=== PATIENT | female | born 1955 | race Hispanic/Latino ===

== ENCOUNTER → 2019-01-28 | Outpatient (CLI) | payer OTHER ==
--- NOTE | 2019-02-11 09:01 | Diagnostic Imaging Report ---
#[id number] - MGSCRBIL #BILATERAL DIGITAL SCREENING MAMMOGRAM WITH CAD: 01/28/2019 CLINICAL: Routine screening. Comparison is made to exams dated: 03/06/2018 mammogram and 02/03/2017 mammogram - [facility]. Current study contains 4 films. The tissue of both breasts is predominantly fatty. Current study was also evaluated with a Computer Aided Detection (CAD) system. Benign appearing calcifications are noted bilaterally. There is a benign intramammary node in the left breast. No significant masses, calcifications, or other findings are seen in either breast. IMPRESSION: BENIGN There is no mammographic evidence of malignancy. A 1 year screening mammogram is recommended. The patient will be notified by letter of the results. JANES ESTEVEZ M.D. ct/penrad:02/08/2019 08:27:36 Residential Youth Counselor: Teresa MARTIN)(Asia), [facility] letter sent: Normal Exam Mammogram BI-RADS: 2 Benign
== END ==
LOC: MAMMO 14:01
PROVIDERS: ATTEND Internal Medicine
DX: Z12.31 Encounter for screening mammogram for malignant neoplasm of breast (principal)
CPT/HCPCS: 77067

== ENCOUNTER → 2019-07-03 | Outpatient (CLI) | payer OTHER ==
--- NOTE | 2019-07-03 15:45 | Diagnostic Imaging Report ---
EXAM: CHEST 2 VIEWS DATE: 07/03/2019 2:43 PM INDICATION: Shortness of breath COMPARISON: None FINDINGS: The trachea is midline. The lungs are symmetrically expanded without evidence for large focal consolidation, pneumothorax, or significant pleural effusion. The cardiomediastinal silhouette and pulmonary vasculature are within normal limits. No acute osseous abnormality is identified. The surrounding soft tissues are unremarkable. IMPRESSION: No acute cardiopulmonary process identified. Signed by: Dr. Sarwat Arana MD on 07/03/2019 3:42 PM
--- NOTE | 2019-07-03 15:50 | Diagnostic Imaging Report ---
EXAM: THORACIC SPINE 2VW, SP LUMBAR, COMPLETE MIN 4VW DATE: 07/03/2019 2:43 PM INDICATION: Back pain COMPARISON: None FINDINGS: Thoracic spine: There is no evidence for acute fracture or dislocation. No focal lytic or blastic abnormality is identified. Vertebral body heights are maintained. There are mild degenerative changes of the thoracic spine. Lumbar spine: There are 5 nonrib-bearing lumbar type vertebral bodies. There is no evidence for acute fracture or dislocation. Lumbar spinal alignment is within normal limits. Intervertebral disc space heights and vertebral body heights are maintained. There are mild degenerative changes present of the lumbar spine, most prominent at L5-S1. The surrounding soft tissues are unremarkable. The visualized intra-abdominal contents demonstrate no significant abnormalities. IMPRESSION: No acute radiographic abnormality identified within the thoracolumbar spine. Signed by: Dr. Sarwat Arana MD on 07/03/2019 3:47 PM
--- NOTE | 2019-07-03 15:51 | Diagnostic Imaging Report ---
EXAM: SACRUM X-RAY DATE: 07/03/2019 2:43 PM INDICATION: Back pain COMPARISON: None FINDINGS: There is no evidence for acute fracture or dislocation. Bony mineralization is within normal limits. No focal lytic or blastic abnormality is identified. The bilateral SI joints are unremarkable. The visualized intrapelvic contents are unremarkable. IMPRESSION: No acute radiographic abnormality identified within the sacrum. Signed by: Dr. Sarwat Arana MD on 07/03/2019 3:48 PM
== END ==
LOC: RAD 14:17
PROVIDERS: ATTEND Internal Medicine
DX: R06.02 Shortness of breath (principal); R91.1 Solitary pulmonary nodule; M43.06 Spondylolysis, lumbar region
CPT/HCPCS: 71046; 72070; 72110; 72220

== ENCOUNTER 2019-08-21 22:25 | Observation (INO) | payer OTHER ==
[~2019-08-21] VITALS: Ht 157.5 cm; Wt 84.8 kg
--- OUTSIDE RECORDS SUMMARY | 2019-08-21 22:28 | XMS REPORT ---
[facility] Address Unknown Phone Unavailable Care Team Providers Care Spout Tender Name Role Phone Asia DOOLEY JEFFERSON Unavailable Unavailable Problems This patient has no known problems. Allergies, Adverse Reactions, Alerts This patient has no known allergies or adverse reactions. Medications This patient has no known medications. Encounters Start Date/Time End Date/Time Encounter Type Admission Type Attending [facility] [place] Facility Care Department Encounter ID 2018-11-01 00:00:00 2018-11-01 00:00:00 Outpatient [facility] [id number] 2018-10-08 00:00:00 2018-10-08 00:00:00 Outpatient [facility] [id number] 2018-07-13 09:06:32 2018-07-13 09:06:32 Outpatient [facility] [id number] 2018-07-03 10:55:10 2018-07-03 10:55:10 Outpatient [facility] [id number] 2018-06-05 14:02:54 2018-06-05 14:02:54 Outpatient [facility] [id number] 2018-06-05 00:00:00 2018-06-05 00:00:00 Outpatient [facility] [id number] 2018-05-31 13:17:26 2018-05-31 13:17:26 Outpatient [facility] [id number] 2018-05-31 13:05:35 2018-05-31 13:05:35 Outpatient [facility] [id number] 2018-05-30 00:00:00 2018-05-30 00:00:00 Outpatient [facility] [id number] 2018-05-29 00:00:00 2018-05-29 00:00:00 Outpatient [facility] [id number] 2018-05-29 00:00:00 2018-05-29 00:00:00 Outpatient [facility] [id number] 2018-05-23 00:00:00 2018-05-23 00:00:00 Outpatient [facility] [id number] 2018-05-18 08:27:30 2018-05-18 08:27:30 Outpatient [facility] [id number] 2018-05-10 00:00:00 2018-05-10 00:00:00 Outpatient [facility] [id number] 2018-05-01 09:52:55 2018-05-01 09:52:55 Outpatient [facility] [id number] 2018-04-25 14:16:51 2018-04-25 14:16:51 Outpatient [facility] [id number] 2018-04-23 00:00:00 2018-04-23 00:00:00 Outpatient [facility] [id number] 2018-04-17 09:50:15 2018-04-17 09:50:15 Outpatient [facility] [id number] 2018-04-17 07:58:42 2018-04-17 07:58:42 Outpatient [facility] [id number] 2018-04-09 09:41:18 2018-04-09 09:41:18 Outpatient [facility] [id number] 2018-04-09 09:41:16 2018-04-09 09:41:16 Outpatient [facility] [id number] 2018-04-06 09:46:30 2018-04-06 09:46:30 Outpatient [facility] [id number] 2018-03-09 12:46:42 2018-03-09 12:46:42 Emergency [facility] [id number] 2018-03-09 09:26:29 2018-03-09 09:26:29 Outpatient [facility] [id number] 2018-03-09 07:52:56 2018-03-09 07:52:56 Outpatient [facility] [id number] 2018-03-06 08:33:58 2018-03-06 08:33:58 Outpatient [facility] [id number] 2018-03-06 08:21:20 2018-03-06 08:21:20 Outpatient [facility] [id number] 2018-03-02 00:00:00 2018-03-02 00:00:00 Outpatient [facility] [id number] 2018-02-28 14:07:49 2018-02-28 14:07:49 Outpatient [facility] [id number] 2018-02-26 14:11:15 2018-02-26 14:11:15 Outpatient [facility] [id number] 2018-02-22 14:22:08 2018-02-22 14:22:08 Outpatient [facility] [id number] 2018-02-19 09:34:58 2018-02-19 09:34:58 Outpatient [facility] [id number] 2018-02-02 13:48:11 2018-02-02 13:48:11 Emergency [facility] [id number] 2018-02-02 12:40:27 2018-02-02 12:40:27 Emergency [facility] [id number] 2017-11-17 09:54:42 2017-11-17 09:54:42 Outpatient [facility] [id number] 2017-11-16 15:52:14 2017-11-16 15:52:14 Outpatient [facility] [id number] 2017-10-04 00:00:00 2017-10-04 00:00:00 Outpatient [facility] [id number] 2017-03-31 07:55:24 2017-03-31 07:55:24 Outpatient [facility] [id number] Results Test Description Test Time Test Comments Text Results Atomic Results Result Comments SACRUM X-RAY 2019-07-03 15:47:00 [place] [id number] Patient Name: CRISTOPHER BOOKER MR #: [id number] : 1955 Age/Sex: 63/F Req #: [id number] Adm Physician: Ordered by: JEFFERSON DOOLEY MD Report #: [id number] Location: [facility] Room/Bed: Procedure: [id number] DX/SACRUM X-RAY Exam Date: Exam Time: REPORT STATUS: Signed EXAM: SACRUM X-RAY DATE: 07/03/2019 2:43 PM INDICATION: Back pain COMPARISON: None FINDINGS: There is no evidence for acute fracture or dislocation. Bony mineralization is within normal limits. No focal lytic or blastic abnormality is identified. The bilateral SI joints are unremarkable. The visualized intrapelvic contents are unremarkable. IMPRESSION: No acute radiographic abnormality identified within the sacrum. Signed by: Dr. Sarwat Arana MD on 07/03/2019 3:48 PM Dictated By: SARWAT ARANA MD 47 Transcribed By: LUIZA on 07/03/191547 COPY TO: JEFFERSON DOOLEY MD THORACIC SPINE 2VW 2019-07-03 15:43:00 [place] [id number] Patient Name: CRISTOPHER BOOKER MR #: [id number] : 1955 Age/Sex: 63/F Req #: [id number] Adm Physician: Ordered by: JEFFERSON DOOLEY MD Report #: [id number] Location: [facility] Room/Bed: Procedure: [id number] DX/THORACIC SPINE 2VW Exam Date: Exam Time: REPORT STATUS: Signed EXAM: THORACIC SPINE 2VW, SP LUMBAR, COMPLETE MIN 4VW DATE: 06/23 2:43 PM INDICATION: Back pain COMPARISON: None FINDINGS: Thoracic spine: There is no evidence for acute fracture or dislocation. No focal lytic or blastic abnormality is identified. Vertebral body heights are maintained. There are mild degenerative changes of the thoracic spine. Lumbar spine: There are 5 nonrib-bearing lumbar type vertebral bodies. There is no evidence for acute fracture or dislocation. Lumbar spinal alignment is within normal limits. Intervertebral disc space heights and vertebral body heights are maintained. There are mild degenerative changes present of the lumbar spine, most prominent at L5-S1. The surrounding soft tissues are unremarkable. The visualized intra-abdominal contents demonstrate no significant abnormalities. IMPRESSION: No acute radiographic abnormality identified within the thoracolumbar spine. Signed by: Dr. Sarwat Arana MD on 07/03/2019 3:47 PM Dictated By: SARWAT ARANA MD 46 Transcribed By: LUIZA on 07/03/191546 COPY TO: JEFFERSON DOOLEY MD SP LUMBAR, COMPLETE MIN 4VW 2019-07-03 15:43:00 [place] [address] Patient Name: CRISTOPHER BOOKER MR #: [id number] : 1955 Age/Sex: 63/F Req #: [id number] Adm Physician: Ordered by: JEFFERSON DOOLEY MD Report #: [id number] Location: [facility] Room/Bed: Procedure: [id number] DX/SP LUMBAR, COMPLETE MIN 4VW Exam Date: Exam Time: REPORT STATUS: Signed EXAM: THORACIC SPINE 2VW, SP LUMBAR, COMPLETE MIN 4VW D ATE: 07/03/2019 2:43 PM INDICATION: Back pain COMPARISON: None FINDINGS: Thoracic spine: There is no evidence for acute fracture or dislocation. No focal lytic or blastic abnormality is identified. Vertebral body heights are maintained. There are mild degenerative changes of the thoracic spine. Lumbar spine: There are 5 nonrib-bearing lumbar type vertebral bodies. There is no evidence for acute fracture or dislocation. Lumbar spinal alignment is within normal limits. Intervertebral disc space heights and vertebral body heights are maintained. There are mild degenerative changes present of the lumbar spine, most prominent at L5-S1. The surrounding soft tissues are unremarkable. The visualized intra-abdominal contents demonstrate no significant abnormalities. IMPRESSION: No acute radiographic abnormality identified within the thoracolumbar spine. Signed by: Dr. Sarwat Arana MD on 07/03/2019 3:47 PM Dictated By: SARWAT ARANA MD 46 Transcribed By: LUIZA on 07/03/191546 COPY TO: JEFFERSON DOOLEY MD CHEST 2 VIEWS 2019-07-03 15:41:00 [place] [address] Patient Name: CRISTOPHER BOOKER MR #: [id number] : 1955 Age/Sex: 63/F Req #: [id number] Adm Physician: Ordered by: JEFFERSON DOOLEY MD Report #: [id number] Location: [facility] Room/Bed: Procedure: [id number] DX/CHEST 2 VIEWS Exam Date: Exam Time: REPORT STATUS: Signed EXAM: CHEST 2 VIEWS DATE: 07/03/2019 2:43 PM INDICATION: Shortness of breath COMPARISON: None FINDINGS: The trachea is midline. The lungs are symmetrically expanded without evidence for large focal consolidation, pneumothorax, or significant pleural effusion. The cardiomediastinal silhouette and pulmonary vasculature are within normal limits. No acute osseous abnormality is identified. The surrounding soft tissues are unremarkable. IMPRESSION: No acute cardiopulmonary process identified. Signed by: Dr. Sarwat Arana MD on 07/03/2019 3:42 PM Dictated By: SARWAT ARANA MD 41 Transcribed By: LUIZA on 07/03/191541 COPY TO: JEFFERSON DOOLEY MD MAMMOGRAPHY DIGITAL SCR BILAT 2019-01-28 14:44:00 [place] [address] Patient Name: CRISTOPHER BOOKER MR #: [id number] : 1955 Age/Sex: 63/F Req #: [id number] Adm Physician: Ordered by: JEFFERSON DOOLEY MD Report #: [id number] Location: MAMMO Room/Bed: Procedure: [id number] MG/MAMMOGRAPHY DIGITAL SCR BILAT Exam Date: Exam Time: REPORT STATUS: Signed #[id number] - MGSCRBIL #BILATERAL DIGITAL SCREENING M AMMOGRAM WITH CAD: 01/28/2019 CLINICAL: Routine screening. Comparison is made to exams dated: 03/06/2018 mammogram and 02/03/2017 mammogram - [facility]. Current study contains 4 films. The tissue of both breasts is predominantly fatty. Current study was also evaluated with a Computer Aided Detection (CAD) system. Benign appearing calcifications are noted bilaterally. There is a benign intramammary node in the left breast. No significant masses, calcifications, or other findings are seen in either breast. IMPRESSION: BENIGN There is no mammographic evidence of malignancy. A 1 year screening mammogram is recommended. The patient will be notified by letter of the results. JANES olivier/payam:02/08/2019 08:27:36 Sulfuric Acid Plant Operator: Teresa MARTIN)(M), [facility] letter sent: Normal Exam Mammogram BI-RADS: 2 Benign Dictated By: JANES ESTEVEZ MD 6 Transcribed By: PAYAM on 02/08/19826 COPY TO: JEFFERSON DOOLEY MD
[2019-08-21] MEDS ORDERED: NITROGLYCERIN 2% OINT 1 GM PKT TOP ONE (23:00)
[2019-08-21] MEDS ORDERED: ASPIRIN 81 MG CHEW TAB PO ONE ×2 (23:00)
[2019-08-21] MEDS ORDERED: FAMOTIDINE 20 MG/2 ML VIAL IV ONE (23:00)
[2019-08-21] MEDS ORDERED: ONDANSETRON HCL INJ 2MG/ML 2ML 2 MG/ML VIAL IV ONE (23:00)
[2019-08-21 23:16] LABS: BASOPHILS % 0.4 % (0.0-1.0); EOSINOPHILS # (AUTO) 0.1 (0.0-0.4); HEMATOCRIT 38.4 % (34.2-44.1); HEMOGLOBIN 12.6 g/dL (12.0-16.0); LYMPHOCYTES # (AUTO) 1.7 (1.0-3.2); LYMPHOCYTES % 20.2 % (18.0-39.1); MEAN CORPUSCULAR HGB CONC 32.8 g/dL (31-35); MEAN CORPUSCULAR VOLUME 85.3 fL (81-99); MONOCYTES # (AUTO) 0.7 (0.2-0.8); MONOCYTES % 8.8 % (4.4-11.3); NEUTROPHILS # (AUTO) 5.8 (2.1-6.9); NEUTROPHILS % 69.4 % (38.7-80.0); PLATELET COUNT 205 x10e3/uL (140-360); RED CELL DISTRIBUTION WIDTH 12.6 % (11.7-14.4)
[2019-08-21 23:29] LABS: ALANINE AMINOTRANSFERASE 20 IU/L (0-55); ALBUMIN 4.1 g/dL (3.5-5.0); ALBUMIN/GLOBULIN RATIO 1.4 (0.8-2.0); ALKALINE PHOSPHATASE 70 IU/L (40-150); ANION GAP 15.7 mmol/L (8-16); BLOOD UREA NITROGEN 13 mg/dL (7-26); BUN/CREATININE RATIO 16 (6-25); CALCIUM 9.8 mg/dL (8.4-10.2); CARBON DIOXIDE 24 mmol/L (22-29); CHLORIDE 105 mmol/L (98-107); CREATINE KINASE 61 IU/L (29-168); CREATININE, SERUM 0.79 mg/dL (0.57-1.11); EST GLOMERULAR FILTRATION RATE > 60 ML/MIN (60-); GLUCOSE 116 mg/dL (74-118); POTASSIUM 3.7 mmol/L (3.5-5.1); SODIUM 141 mmol/L (136-145)
[2019-08-21 23:49] LABS: AMYLASE 73 U/L (25-125); LIPASE 24 U/L (8-78)
--- NOTE | 2019-08-21 23:51 | Diagnostic Imaging Report ---
EXAMINATION: CHEST SINGLE (PORTABLE) COMPARISON: Chest x-ray 07/03/2019 INDICATION: Shortness of breath, upper back pain ^Chest pain, look for CHF, enlarge Mediastinum ^[id number] ^2324 DISCUSSION: Frontal view of the chest obtained at 2329 hours. HEART AND MEDIASTINUM: The heart is top normal in size and stable. LINES: None LUNGS: Diffuse hyperinflation suggestive of small airways disease. No edema or consolidation. PLEURA: No pleural effusion or pneumothorax. Stable eventration of the right diaphragm. BONES AND SOFT TISSUES: Degenerative changes of the spine. No focal osseous lesions. The soft tissues are normal. IMPRESSION: Stable mild cardiomegaly. Diffuse hyperinflation suggestive of small airways disease. No acute cardiopulmonary process. Signed by: Dr. Matt Lay MD on 08/21/2019 11:48 PM
[2019-08-22] VITALS (10 sets, daily range): BP systolic 98–151; BP diastolic 53–68
[2019-08-22 00:04] LABS: CLARITY,URINE SL CLOUDY (CLEAR); COLOR,URINE YELLOW (YELLOW)
[2019-08-22 00:05] LABS: BACTERIA,URINE FEW /HPF; BILIRUBIN,URINE NEGATIVE (NEGATIVE); EPITHELIAL CELLS,URINE FEW /LPF; KETONES,URINE 1+ (NEGATIVE); LEUKOCYTE ESTERASE ,URINE NEGATIVE (NEGATIVE); NITRITE,URINE NEGATIVE (NEGATIVE); PROTEIN,URINE DIPSTICK NEGATIVE (NEGATIVE); RBC,URINE 0-5 /HPF (0-5); URINE UROBILINOGEN 0.2 mg/dL (0.2 - 1); WBC,URINE (MAN) 0-5 /HPF (0-5)
[2019-08-22] MEDS ORDERED: LACTATED RINGER'S 1,000 ML IV SCH (00:12)
[2019-08-22] MEDS ORDERED: DIPHENHYDRAMINE HCL INJ 50 MG/ML VIAL IV PRN (00:15)
[2019-08-22] MEDS ORDERED: ENALAPRILAT IV INJ 1.25 MG/ML VIAL IV PRN (00:15)
[2019-08-22] MEDS ORDERED: ONDANSETRON HCL INJ 2MG/ML 2ML 2 MG/ML VIAL IV PRN (00:15)
[2019-08-22] MEDS ORDERED: ACETAMINOPHEN 325 MG TAB PO PRN (00:15)
[2019-08-22] MEDS ORDERED: METOPROLOL TARTRATE 25 MG TAB PO SCH (00:15)
[2019-08-22] MEDS ORDERED: SODIUM CHLORIDE FLUSH 10 ML SYR INJ PRN (00:15)
[2019-08-22] MEDS ORDERED: ZOLPIDEM TARTRATE 5 MG TAB PO PRN (00:15)
[2019-08-22] MEDS ORDERED: MORPHINE SULFATE 2 MG/ML SYR 1ML IV PRN (00:15)
[2019-08-22] MEDS ORDERED: MORPHINE SULFATE INJ 4 MG/ML INJ 1ML IV PRN (00:15)
[2019-08-22] MEDS ORDERED: ENOXAPARIN INJ 80 MG/0.8 ML SYR SC ONE (00:15)
[2019-08-22] MEDS ORDERED: TIZANIDINE HCL2 MG PO (01:32)
[2019-08-22] MEDS ORDERED: SIMVASTATIN20 MG PO (01:32)
[2019-08-22] MEDS ORDERED: ASPIR 8181 MG PO (01:32)
[2019-08-22] MEDS ORDERED: OMEPRAZOLE40 MG PO (01:32)
[2019-08-22] MEDS ORDERED: SUCRALFATE1 GM PO (01:32)
[2019-08-22] MEDS ORDERED: LOSARTAN POTASS50 MG PO (01:32)
[2019-08-22] MEDS ORDERED: ULTRAM 50MG50 MG PO (01:32)
--- NOTE | 2019-08-22 02:00 | NUR ---
patient arrived to the floor via wheelchair, escorted by [employer] INSTALLER, and spouse, patient AOX4, no respiratory distress noted, denies chest pain at this time VSS, telemetry in place, telemetry reporting NS with BBB, skin warm dry intact, ambulatory gait steady, oriented to staff, room and policies and procedures, all questions answered, call light placed within reach
--- NOTE | 2019-08-22 03:00 | NUR ---
hourly rounding completed, patient offered assistance for toileting, spouse at bedside sleeping, denies chest pain, telemetry box checked lead in place and active, skin warm dry, call light within reach, personal belongings within reach
[2019-08-22] MEDS ORDERED: NITROGLYCERIN 2% OINT 1 GM PKT TOP SCH (06:00)
--- NOTE | 2019-08-22 07:00 | NUR ---
PATIENT IS IN STABLE CONDITION WITH NO S/S OF RESPIRATORY DISTRESS- NO PAIN VOICED. IV FLUIDS INFUSING.TELEMETRY APPLIED. PRESENT IN ROOM. CALL LIGHT IS WITHIN REACH, PATIENT INSTRUCTED TO CALL FOR ASSISTANCE NEEDED.
[2019-08-22] MEDS: METOPROLOL TARTRATE 25 MG TAB PO SCH ×2 (09:00→20:25)
[2019-08-22] MEDS: FAMOTIDINE 20 MG/2 ML VIAL IV SCH ×2 (09:08→16:15)
[2019-08-22] MEDS ORDERED: TRAMADOL HCL 50 MG TAB PO PRN (10:15)
[2019-08-22] MEDS: LOSARTAN POTASSIUM 25 MG TAB PO SCH (11:00)
[2019-08-22] MEDS ORDERED: REGADENOSON 0.4 MG/5 ML SYR IV ONE (11:18)
--- NOTE | 2019-08-22 12:48 | NUR ---
PATIENT OFF THE UNIT TO NUCLEAR [facility] FOR STRESS TEST. TELE APPLIED. PATIENT IS IN STABLE CONDITION WITH NO S/S OF RESPIRATORY DISTRESS.
[2019-08-22 16:25] LABS: CREATINE KINASE 62 IU/L (29-168)
--- NOTE | 2019-08-22 17:09 | Consultation ---
DATE OF CONSULTATION: Cardiology Consult HISTORY OF PRESENT ILLNESS: Simran Gonzalez is a 63-year-old female with primary history of hypertension, hyperlipidemia, GERD, admitted complaining of intermittent substernal chest pain accompanied with dyspnea on exertion that started about a month ago. Few hours prior to admission, the patient reports of having shortness of breath walking from the parking lot to the hospital for her sleep study. She also reports and complains of a lot of burping episodes and anxiety in the past 24 hours. The patient denies any nausea, dizziness, or palpitations. Also denies fever and chills or contact with sick family members. PAST MEDICAL HISTORY: Hypertension, hyperlipidemia, GERD, and osteoarthritis. PAST SURGICAL HISTORY: None. FAMILY HISTORY: Parents are . Mom had of pulmonary causes and dad of CVA. PHYSICAL EXAMINATION: VITAL SIGNS: Temperature is 96.9, pulse is 84, blood pressure is 98/53, respirations 20, SpO2 is 95 on room air. GENERAL: The patient is well developed, well nourished, in no acute respiratory distress. SKIN: Normal in appearance, texture, and temperature, warm and dry. HEENT: The patient's cranium is normocephalic and atraumatic. Pupils are equally round and reactive to light and accommodation. Sclerae nonicteric. Ears are normal. Throat is clear. No thyromegaly. NECK: Supple. Full range of motion. No JVP. RESPIRATORY: Normal respiratory effort. Lungs are clear to auscultation bilaterally. No wheezing or rhonchi or rales. CARDIOVASCULAR: S1 and S2 audible. Regular rate and rhythm. ABDOMEN: No significant murmurs heard. GASTROINTESTINAL: Soft, obese, nontender, nondistended. Bowel sounds are present. EXTREMITIES: No cyanosis, no clubbing, no edema. NEUROVASCULAR: Motor is intact. Pulses are palpable 2+ throughout. IMPRESSION AND PLAN: Simran Gonzalez is a 63-year-old with atypical chest pain. EKG shows normal sinus rhythm with left bundle branch block, unchanged from previous EKG. IMPRESSION: Atypical chest pain. PLAN: 1. We will arrange for echocardiogram. 2. We will do Lexiscan nuclear stress test on her. 3. Monitor on telemetry. 4. Further cardiac workup depending on clinical course. Thank you for this consultation. We will continue to follow. Dictated by Sabi Gray, CAN DOFFER MD CIARA Chavez /[id number]
[2019-08-22] MEDS: SUCRALFATE 1 GM TAB PO SCH (17:14)
[2019-08-22] MEDS ORDERED: LACTATED RINGER'S 1,000 ML IV ONE (17:30)
--- NOTE | 2019-08-22 17:34 | History and Physical ---
HISTORY OF PRESENT ILLNESS: She is a 63-year-old female patient, presented to the emergency room with complaints of chest pain and interscapular pain. The patient was complaining of pain radiating to epigastric area and left shoulder and chest. The patient was also having a lot of burping. The patient was seen in the emergency room. The patient had previous coronary artery disease. The patient was admitted. REVIEW OF SYSTEMS: Back pain, epigastric pain, and chest pain. PAST MEDICAL HISTORY: Hypertension, coronary artery disease, and sleep apnea. PAST SURGICAL HISTORY: Heart cath. ALLERGIES: NO KNOWN DRUG ALLERGIES. SOCIAL HISTORY: The patient denies smoking. Denies using alcohol. FAMILY HISTORY: Hypertension. MEDICATIONS: See from the list. PHYSICAL EXAMINATION: GENERAL: She is a middle-aged female patient, not in any distress. VITAL SIGNS: Temperature 98, pulse is 88, blood pressure 120/70. HEENT: Normocephalic and atraumatic. NECK: No JVD. No lymphadenopathy. LUNGS: Bilateral equal air entry. No rales. No rhonchi. HEART: S1, S2 regular. No murmur. No gallop. ABDOMEN: Soft. Bowel sounds are present. NEUROLOGIC: No focal neurological deficit. LABORATORY EXAMINATION: EKG shows left bundle-branch block and left axis deviation. Chest x-ray was normal. Cardiac enzymes and chemistry were normal. ADMITTING IMPRESSION/DIAGNOSES: Chest pain, angina pectoris, history of coronary artery disease, history of gastroesophageal reflux disease, hyperlipidemia, and hypertension. PLAN: The patient will be admitted with above diagnoses. The patient is to have a cardiology consultation, Dr. Leigh. The patient will get a nuclear stress test and the further treatment as per the stress test report. We will monitor the patient in the telemetry unit and do serial EKG and cardiac enzymes to rule out any ischemic event. MD AUDRA Saavedra/PHYLICIA /[id number]
--- NOTE | 2019-08-22 19:01 | NUR ---
PATIENT IS IN STABLE CONDITION WITH NO S/S OF RESPIRATORY DISTRESS. NO C/O CHEST PAIN. IV FLUIDS INFUSING. PRESENT IN THE ROOM. CALL LIGHT IS WITHIN REACH, PATIENT INSTRUCTED TO CALL FOR ASSISTANCE NEEDED. BEDSIDE SHIFT REPORT GIVEN TO ONCOMING NURSE.
--- NOTE | 2019-08-22 19:06 | NUR ---
oncoming SBAR shifts report received from Mandi RN, patient awake alert oriented X4, able to verbalize needs, vietnamese primary language, skin warm dry, denies pain discomfort at this time, gait steady, call light within reach
[2019-08-22] MEDS ORDERED: SIMVASTATIN 40 MG TAB PO SCH (21:00)
[2019-08-22] MEDS ORDERED: SIMVASTATIN 20 MG TAB PO SCH (21:00)
[2019-08-23] VITALS (9 sets, daily range): BP systolic 97–128; BP diastolic 53–63
[2019-08-23 06:27] LABS: CHOL/HDL RATIO 2.8 (3.0-3.6)
[2019-08-23] MEDS ORDERED: PANTOPRAZOLE SOD 40 MG TABEC PO SCH (07:30)
[2019-08-23] MEDS: FAMOTIDINE 20 MG/2 ML VIAL IV SCH (08:58)
[2019-08-23] MEDS: LOSARTAN POTASSIUM 25 MG TAB PO SCH (08:58)
[2019-08-23] MEDS: METOPROLOL TARTRATE 25 MG TAB PO SCH (08:58)
[2019-08-23] MEDS: SUCRALFATE 1 GM TAB PO SCH (08:58)
[2019-08-23] MEDS ORDERED: ASPIRIN 81 MG CHEW TAB PO SCH (09:00)
[2019-08-23] MEDS ORDERED: NON-FORMULARY MEDICATION (Losartan Potassium 25 MG) PO SCH (09:00)
[2019-08-23] MEDS ORDERED: ONDANSETRON HCL 4 MG ORAL DISINTEGRATING TAB PO PRN (09:45)
--- NOTE | 2019-08-23 11:38 | NUR ---
SPOKE TO BEBETO, DR. ROSALES'S N.P., RECEIVED CLEARANCE FOR DISCHARGE AND TO HAVE PATIENT F/U IN 1-2 WEEKS.
--- NOTE | 2019-08-23 13:24 | NUR ---
PATIENT DISCHARGE HOME- PATIENT OFF THE UNIT AT 1218 PER WHEELCHAIR ACCOMPANIED BY PCT TO THE FRONT LOBBY. PATIENT IS IN STABLE CONDITION WITH NO S/S OF RESPIRATORY DISTRESS. NO PAIN VOICED. IV REMOVED WITH TIP INTACT. DISCHARGE TEACHING AND INSTRUCTIONS GIVEN TO THE PATIENT AND HER . ALL PERSONAL ITEMS WERE TAKEN WITH THE PATIENT AND HER .
--- NOTE | 2019-08-24 07:53 | Discharge Summary ---
She is a 63-year-old female patient of mine, presented with a complaint of chest pain , hypertension, obstructive sleep apnea, obesity, hyperlipidemia. HOSPITAL COURSE SUMMARY: The patient was admitted under observation and the patient was monitored in the telemetry unit and SERIAL cardiac enzymes were done. An echocardiogram done and Cardiology consultation done by Dr. Leigh. The patient had a chest x-ray done, showed mild cardiomegaly. The patient had a nuclear stress test was done, which was negative. An echocardiogram was done, which was normal ejection fraction. So now upon stabilization, the patient will be discharged home and the patient will need an outpatient GI workup and the patient also undergoing sleep apnea testing with a sleep study. The patient need to follow up on that. MD AUDRA Saavedra/MODL /[id number] KASSIDY
== END 2019-08-23 12:26 | disposition home or self-care (01) ==
LOC: ER 22:25 → ERHOLD 08-22 00:11 → MED/SURG3 08-22 02:16
PROVIDERS: ADMIT Internal Medicine; ATTEND Internal Medicine
DX: I25.110 Atherosclerotic heart disease of native coronary artery with unstable angina pectoris (principal); I10 Essential (primary) hypertension; G47.33 Obstructive sleep apnea (adult) (pediatric); E78.5 Hyperlipidemia, unspecified; E66.9 Obesity, unspecified; Z68.34 Body mass index [BMI] 34.0-34.9, adult; K21.9 Gastro-esophageal reflux disease without esophagitis; R07.89 Other chest pain
CPT/HCPCS: 36415 ×3; 71045; 78452; 80053; 80061; 81001; 82150; 82550 ×2; 82553 ×2; 83690; 84484 ×2; 85025; 93005; 93017; 93306; 96361; 99284; A9502; G0378 ×2; J1650; J2405; J2785; J7121; S0164

== ENCOUNTER 2019-09-18 18:43 | Emergency (ER) | payer OTHER ==
[~2019-09-18] VITALS: Ht 170.2 cm; Wt 81.6 kg
[~2019-09-18 18:43] MED LIST: ASPIR 8181 MG PO; LOSARTAN POTASS50 MG PO; OMEPRAZOLE40 MG PO; SIMVASTATIN20 MG PO; SUCRALFATE1 GM PO; TIZANIDINE HCL2 MG PO; ULTRAM 50MG50 MG PO
[2019-09-18 19:57] LABS: BASOPHILS % 0.6 % (0.0-1.0); EOSINOPHILS # (AUTO) 0.1 (0.0-0.4); EOSINOPHILS % 1.8 % (0.0-6.0); HEMATOCRIT 39.6 % (34.2-44.1); HEMOGLOBIN 13.3 g/dL (12.0-16.0); LYMPHOCYTES % 27.2 % (18.0-39.1); MEAN CORPUSCULAR HEMOGLOBIN 28.7 pg (28-32); MEAN CORPUSCULAR HGB CONC 33.6 g/dL (31-35); MEAN CORPUSCULAR VOLUME 85.5 fL (81-99); MONOCYTES # (AUTO) 0.7 (0.2-0.8); MONOCYTES % 9.2 % (4.4-11.3); NEUTROPHILS # (AUTO) 4.4 (2.1-6.9); NEUTROPHILS % 60.9 % (38.7-80.0); PLATELET COUNT 227 x10e3/uL (140-360); RED BLOOD COUNT 4.63 x10e6/uL (3.6-5.1); RED CELL DISTRIBUTION WIDTH 12.5 % (11.7-14.4)
[2019-09-18 20:00] LABS: BILIRUBIN,URINE NEGATIVE (NEGATIVE); CLARITY,URINE CLEAR (CLEAR); COLOR,URINE YELLOW (YELLOW); KETONES,URINE NEGATIVE (NEGATIVE); LEUKOCYTE ESTERASE ,URINE NEGATIVE (NEGATIVE); NITRITE,URINE NEGATIVE (NEGATIVE); PROTEIN,URINE DIPSTICK NEGATIVE (NEGATIVE); URINE UROBILINOGEN 0.2 mg/dL (0.2 - 1)
--- NOTE | 2019-09-18 20:07 | Diagnostic Imaging Report ---
EXAM: Right Upper Quadrant Ultrasound INDICATION: ^ABD PAIN ^[id number] ^1939 ^Y COMPARISON: None. TECHNIQUE: Transverse and longitudinal images of the right upper abdomen were obtained. FINDINGS: Liver: Size: 15.1 cm in the right midclavicular line, upper limit of normal Appearance: Normal echogenicity, smooth contour Mass: No focal masses Gallbladder: Stones/Sludge: None Wall: 0.2 cm Appearance: No wall thickening, pericholecystic fluid or hydrops. Sonographic Molina's Sign: Negative Bile Ducts: Intrahepatic Ducts: No dilatation Extrahepatic Ducts: Common bile duct measures 0.3 cm, no dilatation Pancreas: Visualized portions of the pancreatic neck and proximal body are normal. Kidneys: Length: Right 9.8 cm Echogenicity: Normal Collecting System: No hydronephrosis Stone: None Cyst/Mass: None Vessels: Aorta: Visualized portions are normal Inferior Vena Cava: Visualized portions are normal Main Portal Vein: 0.6 cm, normal size with hepatopetal flow. Free Fluid: No ascites or pleural effusion IMPRESSION: Essentially unremarkable right upper quadrant ultrasound. Signed by: Dr. Isael Hyman M.D. on 09/18/2019 8:04 PM
[2019-09-18 20:12] LABS: BACTERIA,URINE RARE /HPF; EPITHELIAL CELLS,URINE FEW /LPF
[2019-09-18 20:13] LABS: ALANINE AMINOTRANSFERASE 17 IU/L (0-55); ALBUMIN 4.4 g/dL (3.5-5.0); ALBUMIN/GLOBULIN RATIO 1.5 (0.8-2.0); ALKALINE PHOSPHATASE 69 IU/L (40-150); AMYLASE 78 U/L (25-125); ANION GAP 15.6 mmol/L (8-16); BLOOD UREA NITROGEN 12 mg/dL (7-26); BUN/CREATININE RATIO 16 (6-25); CALCIUM 9.4 mg/dL (8.4-10.2); CARBON DIOXIDE 23 mmol/L (22-29); CHLORIDE 107 mmol/L (98-107); CREATINE KINASE 93 IU/L (29-168); CREATININE, SERUM 0.76 mg/dL (0.57-1.11); EST GLOMERULAR FILTRATION RATE > 60 ML/MIN (60-); GLUCOSE 100 mg/dL (74-118); LIPASE 26 U/L (8-78); POTASSIUM 3.6 mmol/L (3.5-5.1); SODIUM 142 mmol/L (136-145)
--- NOTE | 2019-09-18 20:37 | Diagnostic Imaging Report ---
Examination: Single AP view of the chest. COMPARISON: Portable chest 08/21/2019 INDICATION: Abdominal pain IMPRESSION: 1. Lines and Tubes: None 2. Lungs are grossly clear. No consolidation or effusion. 3. Cardiomediastinal silhouette is normal. Pulmonary vasculature is normal. 4. No acute bony abnormalities. Signed by: Dr. Isael Hyman M.D. on 09/18/2019 8:34 PM
== END 2019-09-18 21:58 | disposition home or self-care (01) ==
LOC: ER 18:43
DX: R10.11 Right upper quadrant pain (principal); R10.13 Epigastric pain; R11.0 Nausea; K29.00 Acute gastritis without bleeding; I10 Essential (primary) hypertension; E11.9 Type 2 diabetes mellitus without complications; E78.5 Hyperlipidemia, unspecified; K21.9 Gastro-esophageal reflux disease without esophagitis
CPT/HCPCS: 36415; 71045; 76705; 80053; 81001; 82150; 82550; 82553; 83690; 84484; 85025; 87086; 93005; 99284

== ENCOUNTER → 2019-10-08 | Outpatient (CLI) | payer OTHER ==
[~2019-10-08] MED LIST changes: +IOPAMIDOL 370 MG/ML 200 ML INFUS..BTL INJ ONE; +SODIUM CHLORIDE 0.9% 50ML 50 ML ONE
[2019-10-08 16:27] LABS: BLOOD UREA NITROGEN 11 mg/dL (7-26); BUN/CREATININE RATIO 14 (6-25); CREATININE, SERUM 0.76 mg/dL (0.57-1.11); EST GLOMERULAR FILTRATION RATE > 60 ML/MIN (60-)
--- NOTE | 2019-10-08 16:34 | Diagnostic Imaging Report ---
TECHNIQUE: 5 views of lumbar spine HISTORY: Pain. COMPARISON: 07/03/2019. IMPRESSION: No acute displaced fracture or dislocation. Joint spaces are within normal limits. Minimal scattered osteophytosis. Soft tissues are grossly unremarkable. Signed by: Marck Oropeza MD on 10/08/2019 4:30 PM
--- NOTE | 2019-10-08 19:38 | Diagnostic Imaging Report ---
EXAM: CT Abdomen and Pelvis WITH contrast INDICATION: Generalized abdominal pain ^[id number] ^[id number] COMPARISON: Gallbladder ultrasound, 09/18/2019 TECHNIQUE: Abdomen and pelvis were scanned utilizing a multidetector helical scanner from the lung base to the pubic symphysis after administration of IV contrast. Coronal and sagittal reformations were obtained. Routine protocol was performed. Scan was performed when during portal venous phase. Dose modulation, iterative reconstruction, and/or weight based adjustment of the mA/kV was utilized to reduce the radiation dose to as low as reasonably achievable. IV CONTRAST: 100 mL of Isovue-370 ORAL CONTRAST: Water RADIATION DOSE: Total DLP: 493.84 mGy*cm Estimated effective dose: (DLP x 0.015 x size factor) mSv COMPLICATIONS: None FINDINGS: LINES and TUBES: None. LOWER THORAX: Lung bases are clear with minimal atelectasis in the right middle lobe. Heart size normal. HEPATOBILIARY: No focal hepatic lesions. No biliary ductal dilation. GALLBLADDER: No radio-opaque stones or sludge. No wall thickening. SPLEEN: No splenomegaly. PANCREAS: No focal masses or ductal dilatation. ADRENALS: No adrenal nodules KIDNEYS/URETERS: Kidneys enhance symmetrically. No hydronephrosis. No cystic or solid mass lesions. No stones. GI TRACT: No abnormal distention, wall thickening, or evidence of bowel obstruction. Appendix is normal. PELVIC ORGANS/BLADDER: Urinary bladder unremarkable. No discrete abnormal mass or fluid collection in the pelvis. The uterus is anteverted with calcifications in the uterine fundus, likely representing fibroids. LYMPH NODES: No dominant lymph node mass is seen in the abdomen, retroperitoneum or pelvis. VESSELS: Abdominal aorta appears unremarkable with no aneurysm or dissection. IVC and portal system unremarkable. Left renal vein is retroaortic. SMA, celiac and ALICIA are patent. PERITONEUM / RETROPERITONEUM: No pneumoperitoneum or ascites. BONES: No acute or suspicious bony lesions. SOFT TISSUES: Superficial surrounding soft tissue unremarkable. IMPRESSION: 1. No CT evidence for acute abdominal or pelvic pathology. Staff: Ana Signed by: Dr. Jones Perez M.D. on 10/08/2019 7:35 PM
== END ==
LOC: CT 15:41
PROVIDERS: ATTEND Internal Medicine
DX: M43.06 Spondylolysis, lumbar region (principal); R10.84 Generalized abdominal pain
CPT/HCPCS: 36415; 72110; 74177; 82565; 84520; Q9967

== ENCOUNTER → 2020-03-02 | Outpatient (CLI) | payer OTHER ==
[~2020-03-02] MED LIST changes: -IOPAMIDOL 370 MG/ML 200 ML INFUS..BTL INJ ONE; -SODIUM CHLORIDE 0.9% 50ML 50 ML ONE
== END ==
LOC: MAMMO 09:44
PROVIDERS: ATTEND Internal Medicine
DX: Z12.31 Encounter for screening mammogram for malignant neoplasm of breast (principal)
CPT/HCPCS: 77067

== ENCOUNTER 2021-12-15 01:15 | Emergency (ER) | payer MEDICARE, OTHER ==
[~2021-12-15] VITALS: Ht 170.2 cm; Wt 81.6 kg
[2021-12-15] MEDS ORDERED: LIDOCAINE VISC 2% SOLN 15 ML UDC ONE (02:10)
[2021-12-15] MEDS ORDERED: BELLADONNA ALK/PHENOBARBITAL 5 ML UDC ONE (02:10)
[2021-12-15] MEDS ORDERED: MAGNESIUM/ALUMINUM/SIMETHICONE 30 ML UDC ONE (02:11)
[2021-12-15 02:12] LABS: BASOPHILS % 0.6 % (0.0-1.0); EOSINOPHILS # (AUTO) 0.2 (0.0-0.4); EOSINOPHILS % 2.4 % (0.0-6.0); HEMATOCRIT 38.5 % (34.2-44.1); HEMOGLOBIN 12.3 g/dL (12.0-16.0); LYMPHOCYTES % 30.1 % (18.0-39.1); MEAN CORPUSCULAR HEMOGLOBIN 28.5 pg (28-32); MEAN CORPUSCULAR HGB CONC 31.9 g/dL (31-35); MEAN CORPUSCULAR VOLUME 89.3 fL (81-99); MONOCYTES # (AUTO) 0.7 (0.2-0.8); MONOCYTES % 9.9 % (4.4-11.3); NEUTROPHILS # (AUTO) 3.9 (2.1-6.9); NEUTROPHILS % 56.9 % (38.7-80.0); PLATELET COUNT 209 x10e3/uL (140-360); RED BLOOD COUNT 4.31 x10e6/uL (3.6-5.1); RED CELL DISTRIBUTION WIDTH 12.4 % (11.7-14.4)
[2021-12-15 02:33] LABS: ALBUMIN 3.9 g/dL (3.5-5.0); ALBUMIN/GLOBULIN RATIO 1.1 (0.8-2.0); ANION GAP 13.8 mmol/L (8-16); CALCIUM 9.5 mg/dL (8.4-10.2); CREATININE, SERUM 0.74 mg/dL (0.57-1.11); LIPASE 28 U/L (8-78); POTASSIUM 3.8 mmol/L (3.5-5.1)
[2021-12-15 03:34] VITALS: BP 135/59
[2021-12-15] MEDS ORDERED: DONNATAL/LIDOCAINE/MAALOX 30 ML SUSP PO SCH (09:00)
== END 2021-12-15 03:35 | disposition home or self-care (01) ==
LOC: ER 01:22
DX: M54.9 Dorsalgia, unspecified (principal); K21.9 Gastro-esophageal reflux disease without esophagitis; I10 Essential (primary) hypertension; E11.9 Type 2 diabetes mellitus without complications; I50.9 Heart failure, unspecified; R94.31 Abnormal electrocardiogram [ECG] [EKG]; E78.5 Hyperlipidemia, unspecified
CPT/HCPCS: 36415; 71045; 80053; 83690; 84484; 85025; 93005; 99283; C9113

== ENCOUNTER 2022-08-23 13:34 | Emergency (ER) | payer MEDICARE ==
[~2022-08-23] VITALS: Ht 157.5 cm; Wt 72.6 kg
[2022-08-23] MEDS ORDERED: PROVENTIL HFA6.7 GM INH (13:52)
[2022-08-23] MEDS ORDERED: FLONASE ALLERG9.9 ML INH (13:52)
[2022-08-23] MEDS ORDERED: HYDROCHLOROTHIA25 MG (13:53)
[2022-08-23] MEDS ORDERED: SPIRONOLACTONE25 MG PO (13:53)
[2022-08-23] MEDS ORDERED: VALTREX1000 MG PO (14:12)
[2022-08-23] MEDS ORDERED: GABAPENTIN300 MG PO (14:14)
== END 2022-08-23 14:43 | disposition home or self-care (01) ==
LOC: FSED 13:50
DX: B02.9 Zoster without complications (principal); I10 Essential (primary) hypertension; E11.9 Type 2 diabetes mellitus without complications; E78.5 Hyperlipidemia, unspecified; I50.9 Heart failure, unspecified; K21.9 Gastro-esophageal reflux disease without esophagitis
CPT/HCPCS: 99282

== ENCOUNTER 2024-09-13 10:13 | Emergency (ER) | payer SELFPAY ==
[~2024-09-13 10:13] MED LIST changes: +FLONASE ALLERG9.9 ML INH; +GABAPENTIN300 MG PO; +HYDROCHLOROTHIA25 MG; +PROVENTIL HFA6.7 GM INH; +SPIRONOLACTONE25 MG PO; +VALTREX1000 MG PO
[2024-09-13 10:18] VITALS: PULSE 110; RESP 18; TEMP 98.6; O2SAT 96
[2024-09-13] MEDS ORDERED: TYLENOL325 MG PO (10:41)
[2024-09-13] MEDS ORDERED: DIPHENHYDRAMINE25 M2 PO (10:41)
[2024-09-13] MEDS ORDERED: TAMIFLU75 MG PO (10:54)
== END 2024-09-13 11:07 | disposition home or self-care (01) ==
LOC: FSED 10:16
DX: R05.9 Cough, unspecified (principal); J10.1 Influenza due to other identified influenza virus with other respiratory manifestations; I10 Essential (primary) hypertension; E11.9 Type 2 diabetes mellitus without complications; I50.9 Heart failure, unspecified; E78.5 Hyperlipidemia, unspecified; K21.9 Gastro-esophageal reflux disease without esophagitis; Z11.52 Encounter for screening for COVID-19
CPT/HCPCS: 0223U; 87400; 99284

== ENCOUNTER 2024-11-16 20:12 | Emergency (ER) | payer MEDICARE ==
[~2024-11-16] VITALS: Ht 157.5 cm; Wt 76.2 kg
[~2024-11-16 20:12] MED LIST changes: +DIPHENHYDRAMINE25 M2 PO; +TAMIFLU75 MG PO; +TYLENOL325 MG PO
[2024-11-16] MEDS ORDERED: METHOCARBAMOL750 MG PO (21:21)
[2024-11-16] MEDS ORDERED: NAPROSYN500 MG PO (21:21)
[2024-11-16 21:27] VITALS: PULSE 70; RESP 16; TEMP 98; O2SAT 100
== END 2024-11-16 21:30 | disposition home or self-care (01) ==
LOC: ER 20:40
DX: M54.2 Cervicalgia (principal); M62.838 Other muscle spasm; M62.830 Muscle spasm of back; I10 Essential (primary) hypertension; E11.9 Type 2 diabetes mellitus without complications; I50.9 Heart failure, unspecified; E78.5 Hyperlipidemia, unspecified; K21.9 Gastro-esophageal reflux disease without esophagitis
CPT/HCPCS: 99283

== ENCOUNTER 2025-01-18 18:29 | Emergency (ER) | payer MEDICARE ==
[~2025-01-18] VITALS: Ht 157.5 cm; Wt 76.2 kg
[~2025-01-18 18:29] MED LIST changes: +METHOCARBAMOL750 MG PO; +NAPROSYN500 MG PO
[2025-01-18 19:09] VITALS: TEMP 98.6
[2025-01-18] MEDS ORDERED: METHOCARBAMOL750 MG PO (19:32)
[2025-01-18 19:50] VITALS: PULSE 77; RESP 16
[2025-01-18 19:57] VITALS: BP 144/63; O2SAT 99
== END 2025-01-18 19:55 | disposition home or self-care (01) ==
LOC: ER 19:27
DX: M54.9 Dorsalgia, unspecified (principal); G89.29 Other chronic pain; I10 Essential (primary) hypertension; E11.9 Type 2 diabetes mellitus without complications; I50.9 Heart failure, unspecified; E78.5 Hyperlipidemia, unspecified; K21.9 Gastro-esophageal reflux disease without esophagitis
CPT/HCPCS: 99283